=== PATIENT | female | born 1970 | race Caucasian/White ===

== ENCOUNTER 2020-04-07 14:44 | Outpatient (REF) | payer OTHER, SELFPAY ==
--- NOTE | 2020-04-07 15:01 | MM_ITS ---
EXAMINATION: MM DIAGNOSTIC DIGITAL BREAST TOMOSYNTHESIS, BILATERAL BILATERAL TARGETED BREAST ULTRASOUND CLINICAL INFORMATION: Left breast mass 3 o'clock position, right breast 9 o'clock position. The lifetime risk of breast cancer based on the Tyrer-Cuzick Model is 16.2%. COMPARISON: Mammography: 02/03/2016. TECHNIQUE: Digital breast tomosynthesis is performed in both the craniocaudal and mediolateral oblique views along with computer-aided detection (CAD). Synthesized 2D images are generated from the tomosynthesis. Supplementary spot compression view left craniocaudal projection performed. Bilateral breast ultrasound. FINDINGS: The breasts are almost entirely fatty (ACR BI-RADS breast composition Category a). There are no significant masses, abnormal calcifications, or other abnormalities. A question density about the medial aspect of the left breast was demonstrated to represent superimposition of fibroglandular tissue. Targeted left breast ultrasound did not demonstrate any abnormal cystic or solid mass. No region of abnormal distal sound shadowing appreciated. Targeted right breast ultrasound did not demonstrate any suspicious cystic or solid masses. No region of abnormal distal sound shadowing is seen. There is noted to be what appears to represent a sebaceous cyst within the epidermis 3 o'clock position retroareolar location. Results are provided to the patient at time of visit by the technologist. MM/MM tomosynthesis diagnostic BI IMPRESSION: No specific mammographic or ultrasound evidence to suggest malignancy. ASSESSMENT: BI-RADS 2: Benign. RECOMMENDATION: Routine annual mammography screening due in 12 months. This patient's information was entered into a reminder system with a target due date for their next mammogram.
== END 2020-04-07 14:45 | disposition home or self-care (01) ==
LOC: HO.MAMMO 14:44
PROVIDERS: PCP Internal Medicine; Visit Provider Internal Medicine
DX: N63.20 Unspecified lump in the left breast, unspecified quadrant (principal); N63.13 Unspecified lump in the right breast, lower outer quadrant
CPT/HCPCS: 76642; 77062; 77066

== ENCOUNTER 2020-06-21 08:24 | Day surgery (SDC) | payer OTHER, SELFPAY ==
[2020-06-21 08:47] VITALS: BMI 22.7
[2020-06-21 09:01] VITALS: BP 127/76; PULSE 74; RESP 16; TEMP 36.2; O2SAT 99
[2020-06-21 09:08] LABS: Glucose, Whole Blood 149 mg/dL (60-115)
--- NOTE | 2020-06-21 09:12 | P.HPSUR_ITS ---
Pre-Procedural Eval Section A Changes since office visit: No Cold of Flu in the past 2 weeks, No New Medical Problems, No Changes in Medication and No Patient answered all questions Section B Chief Complaint: screening Details of Present Illness: Colon cancer screening--#1 Relevant Family History (Specify if Yes): No Relevant Social History: None Present Medications: see Short Stay Collaborative assessment Medical History: Significant History (Diabetes, controlled(x ?20 yrs),Hyp ertension, Depression) History of Previous Operations: Relevant previous surgery/procedure and date(s) (BTL-Csection) Allergies: Allergies Allergy/AdvReac Type Severity Reaction Status Date / Time dulaglutide [Trulicity] Allergy Unknown diarrhea/na Verified 08/27/18 00:00 usea iron Allergy Unknown constipatio Verified 08/27/18 00:00 n metformin Allergy Unknown diarrhea Verified 08/27/18 00:00 Review of Systems Sugical H&P ROS: Negative: Constitution, Cardiovascular, Respiratory and Gastrointestinal and Yes, Specify: Endocrine (diabetes) Exam Surgical H&P Exam: Normal: HEENT, Normal: Heart, Normal: Lungs, Normal: Extremities, Normal: Abdomen and Normal: Skin Plan Diagnosis/Plan: Unchanged I have reviewed the history and physical and performed a pertinent physical examination on my patient. No changes have occurred unless specified.Yes
--- NOTE | 2020-06-21 09:12 | HO.ANESPROP2 ---
[facility] Past Medical History Medical History delivery delivered Depression Diabetes High cholesterol HTN (hypertension) Varicose veins of both lower extremities Surgical History Surgical History Tubal ligation status Social History Social History Smoking Status: Current every day smoker Cigarettes Per Day: 10 Use of substances other than those prescribed or required for medical reasons: No Advance Directives: No Advance Directives Information Provided: No Recently lost weight without trying: No Meds Allergies Allergy/AdvReac Type Severity Reaction Status Date / Time dulaglutide [Trulicity] Allergy Unknown diarrhea/na Verified 08/27/18 00:00 usea iron Allergy Unknown constipatio Verified 08/27/18 00:00 n metformin Allergy Unknown diarrhea Verified 08/27/18 00:00 Home Medications Medication Instructions Recorded Confirmed Type atorvastatin 1 tab PO DAILY 06/21/20 06/21/20 History ferrous gluconate 1 tab PO DAILY 06/21/20 06/21/20 History glimepiride 1.5 tab PO DAILY 06/21/20 06/21/20 History lisinopril-hydrochlorothiazide 1 tab PO DAILY 06/21/20 06/21/20 History metformin 1 tab PO BID 06/21/20 06/21/20 History norethindrone (contraceptive) 1 tab PO DAILY 06/21/20 06/21/20 History [Norlyda] quetiapine 1 tab PO BEDTIME 06/21/20 06/21/20 History Exam Exam Date and Time: June 21, 2020911 Height,Weight and Vital Signs: Height 5 ft 7 in Weight 65.771 kg Last Vital Signs Temp 97.2 F 06/21/20 09:01 Pulse 74 06/21/20 09:01 Resp 16 06/21/20 09:01 BP 127/76 06/21/20 09:01 Pulse Ox 99 06/21/20 09:01 Pertinent Lab Results Pertinent Lab Results: Laboratory Tests 06/21/20 09:03 POC Glucose 149 H Airway Mallampati Class: II TM Dist: >3cm Neck ROM: Full Assessment and Plan Assessment Anesthesia Assessment: Anesthesia Plan Discussed and Chart Reviewed Final Anesthetic Review NPO: Yes ASA Class: II Final Preanesthetic Review: No Changes in Pt Med Stat, Meds/Allgs Chart Reviewed, Consent Obtained/Reviewed and Anes Risks/Benef Reviewed Patient Risk: Low Procedure Risk: Low Assessment/Block/Sedation in SS: Assess/Block/Sedation-SS Anesthetic Plan Anesthetic Plan: MAC: Disposition: Standard PACU
[2020-06-21] MEDS: Lactated Ringers 1,000 ML 20 ML IVCONT (09:24)
[2020-06-21 09:58] VITALS: BP 86/52; PULSE 59; RESP 16; TEMP 36.6; O2SAT 97
--- NOTE | 2020-06-21 09:58 | PM.PROC ---
Brief Operative Note Date of procedure: 06/21/20 Pre-op diagnosis: Colon cancer screening Post-op diagnosis: other (Minor Diverticulosis) Procedure: Colonoscopy Anesthesia: MAC (MD Nancy) Surgeon: Zulema Jurado Estimated blood loss (mL): 0 Pathology: none sent Condition: stable Disposition: PACU
[2020-06-21 10:04] VITALS: BP 87/53; PULSE 60; RESP 16; O2SAT 96
[2020-06-21 10:16] VITALS: BP 99/63; PULSE 62; RESP 16; TEMP 36.6; O2SAT 96
[2020-06-21 10:33] VITALS: BP 88/51; PULSE 54; RESP 16; O2SAT 97
[2020-06-21 10:52] VITALS: BP 98/59; PULSE 54; RESP 16; TEMP 36.6; O2SAT 99
--- NOTE | 2020-06-21 11:19 | HO.POSTANES ---
Post Anesthesia Evaluation Post Anesthesia Evaluation Vital Signs: Vital Signs Temp Pulse Resp BP Pulse Ox 06/21/20 10:52 97.8 F 54 16 98/59 L 99 06/21/20 10:33 54 16 88/51 L 97 06/21/20 10:16 97.8 F 62 16 99/63 96 06/21/20 10:04 60 16 87/53 L 96 06/21/20 09:58 97.8 F 59 16 86/52 L 97 06/21/20 09:01 97.2 F 74 16 127/76 99 Anesthesia: Monitored Mental Status: Awake Pain Control: Satisfactory Nausea/Vomiting: None Hydration: Adequate Anesthesia-Related Issues: No Anes. Related Issues
--- NOTE | 2020-06-21 13:56 | OP_ITS ---
SURGEON: Zulema Jurado MD PREOPERATIVE DIAGNOSIS: Colon cancer screening. POSTOPERATIVE DIAGNOSIS: Minor diverticulosis. PROCEDURE PERFORMED: Colonoscopy. ESTIMATED BLOOD LOSS: No blood loss. COMPLICATIONS: No complications. ANESTHESIA: Monitored. ANESTHESIOLOGIST: Dr. Cruz ASSISTANTS: No insurance sales assistant. SPECIMENS: No specimens removed. MANAGER INDUSTRIAL: Dr. Jurado. CONDITION: Postprocedure, stable. FINDINGS: Digital rectal exam revealed decreased sphincter tone. Video colonoscope was introduced without difficulty. There was some degree of floppiness to the colon. Prep was fair to good, requiring moderate amount of flushing. Significant fiber residue was present, which caused intermittent clogging of the suction port. As we approached the proximal transverse colon, extrinsic abdominal pressure was applied to facilitate movement into the ascending colon down into the cecum. Appendiceal orifice was seen. Ileocecal valve was well seen. Slow withdrawal of scope. Good rotational views. No mucosal lesions were seen. There were occasional diverticula left-sided noted. Anorectal verge was clear. GENERAL IMPRESSION: With no symptoms, no stool change, or evidence of bleeding, repeat colon cancer screening would be appropriate in 10 years. GRAFT OR IMPLANTS: No grafts or implants. Zulema Jurado MD MEN/MODL / [id number] MTDD
== END 2020-06-21 11:22 | disposition home or self-care (01) ==
PROVIDERS: PCP Internal Medicine; Visit Provider Internal Medicine Gastroenterology
PROC: 0DJD8ZZ Inspection of Lower Intestinal Tract, Via Natural or Artificial Opening Endoscopic (ICD-10-PCS; CPT 45378; principal; 2020-06-21 08:30)
DX: Z12.11 Encounter for screening for malignant neoplasm of colon (principal); K57.30 Diverticulosis of large intestine without perforation or abscess without bleeding; I10 Essential (primary) hypertension; E11.9 Type 2 diabetes mellitus without complications; Z79.84 Long term (current) use of oral hypoglycemic drugs; Z79.899 Other long term (current) drug therapy; F17.210 Nicotine dependence, cigarettes, uncomplicated
CPT/HCPCS: 45378; 82947; J2405; J3010

== ENCOUNTER → 2020-06-28 10:05 | Outpatient (BNVA) | payer OTHER, SELFPAY | PROVIDERS: PCP Internal Medicine; Visit Provider Physician Assistant | DX: R19.7 Diarrhea, unspecified (principal) | CPT/HCPCS: 99212 ==

== ENCOUNTER → 2021-10-25 13:13 | Outpatient (RCR) | payer OTHER, SELFPAY ==
--- NOTE | 2020-06-02 13:23 | MHC.PT.DC ---
[facility] [place] [facility] [place] [facility] [place] Office [address] Lina Iyer [address] [phone] F: [phone] F: [phone] F: [phone] F: [phone] Physical Therapy Discharge Report Diagnosis: Plantar fasciitis. Date of Surgery: Date of Evaluation: 05/06/20 Date of Discharge: Treatments to Date: 2 Cancellations to Date: 2 No Shows to Date: 3 Discharge Status: Visit Non-compliance Discharge Summary: Alyssia attended 2 PT sessions demonstrating significant plantar fasciitis symptoms. Unfortunately She had logged 2 cancellations and 3 no-show appointments and has been DC'd per [facility] attendance policy despite calls and interpretation in [place]. Pt did report transportation issues and was informed of transportation services provided she was willing to be seen the the [facility] location. Electronically signed by: Víctor Arizmendi PT. Please sign and return to therapist. Thank you for your referral.
== END | disposition home or self-care (01) ==
LOC: HO.PTCHIC 05-06 13:07
PROVIDERS: PCP Internal Medicine; Visit Provider Internal Medicine
DX: M72.2 Plantar fascial fibromatosis (principal)
CPT/HCPCS: 97035; 97110; 97140; 97162